=== PATIENT | female | born 1965 | race Caucasian/White ===

== ENCOUNTER → 2017-04-01 | Outpatient (CLI) | payer OTHER | PROVIDERS: ATTEND Allergy & Immunology Allergy | DX: R13.10 Dysphagia, unspecified (principal); K21.9 Gastro-esophageal reflux disease without esophagitis; K44.9 Diaphragmatic hernia without obstruction or gangrene; R09.89 Other specified symptoms and signs involving the circulatory and respiratory systems | CPT/HCPCS: 92611-GN ==

== ENCOUNTER → 2017-05-27 | Outpatient (CLI) | payer OTHER | LOC: FIMAGING 11:57 | PROVIDERS: ATTEND Family Medicine | DX: Z12.31 Encounter for screening mammogram for malignant neoplasm of breast (principal) | CPT/HCPCS: G0202 ==

== ENCOUNTER 2017-06-17 10:30 | Inpatient (IN) | payer OTHER ==
--- NOTE | 2017-06-17 09:40 | PDHPUP ---
History & Physical Update H&P update statement: This history and physical update is based on an assessment of the patient which was completed after admission or registration (within 24 hours), but prior to the surgery/procedure. updated
[~2017-06-17 10:30] MED LIST: BUPIVACAINE 0.5% 30 ML SDV ONE; HEPARIN 1000 UNIT/1 ML MDV ONE; ceFAZolin 1 GM/5 ML SYR ONE; cefOXitin SODIUM 2 GM in D5W 100 ML IV ONE
[2017-06-17] MEDS ORDERED: LR 1,000 ML IV ONE (12:31)
[2017-06-17] MEDS ORDERED: SCOPOLAMINE HYDROBROMIDE 1 MG/3 DAYS PATCH TD ONE (13:04)
[2017-06-17] MEDS ORDERED: MIDAZOLAM 2 MG/2 ML VIAL IVP ONE (13:05)
--- NOTE | 2017-06-17 13:06 | PDANEPAE ---
ANE History of Present Illness colon ca ANE Past Medical History - Cardiovascular History Hx Hypertension: No Hx Arrhythmias: No Hx Chest Pain: No Hx Coronary Artery / Peripheral Vascular Disease: No Hx CHF / Valvular Disease: No Hx Palpitations: No Cardiovascular History Comment: was told recently x1 that she may have a murmur - Pulmonary History Hx COPD: No Hx Asthma/Reactive Airway Disease: Yes Hx Recent Upper Respiratory Infection: No Hx Oxygen in Use at Home: No Hx Sleep Apnea: No Sleep Apnea Screening Result - Last Documented: Negative Pulmonary History Comment: asthma- instructed pt to bring inhaler to hospital - Neurologic History Hx Cerebrovascular Accident: No Hx Seizures: No Hx Dementia: No - Endocrine History Hx Diabetes: No - Renal History Hx Renal Disorders: No - Liver History Hx Hepatic Disorders: No - Neurological & Psychiatric Hx Hx Neurological and Psychiatric Disorders: No - Cancer History Hx Cancer: Yes Cancer History Comment: colon cancer currently diagnosed 05/10/17 - Congenital Disorder History Hx Congenital Disorders: No - GI History Hx Gastrointestinal Disorders: Yes Gastrointestinal History Comment: colon ca currently. ibs symptoms. chronic diarrhea. diverticula. small intestinal overgrowth - Other Health History Other Health History: wears glasses. went camping this past weekend and now has 3 bite looking spots on leg that are itchy - Chronic Pain History Chronic Pain: Yes (abd pain) - Surgical History Prior Surgeries: shoulder surgery- bilaterally for impengement syndrome. foot surgery 2004ish- left. right tonsillectomy and right neck disection and drainage with Lillydahl 03/16/09 ANE Review of Systems Review of Systems: - Exercise capacity METS (RN): 4 METS ANE Patient History - Allergies Allergies/Adverse Reactions: Sulfa (Sulfonamide Antibiotics) Allergy (Verified 06/17/17 11:53) - Home Medications Home Medications: Fluticasone Hfa 110 Mcg [Flovent 110 MCG Hfa MDI (*)] 1 puffs IH BID 06/15/17 [ Last Taken 06/17/17] Triamcinolone Acetonide [Nasacort] 1 spray NS DAILY 06/15/17 [Last Taken 22:00] valACYclovir [Valtrex (*)] 500 mg PO DAILY PRN 06/15/17 [Last Taken 06/16/17 21: 00] - NPO status NPO Status: no food or drink >8 hours NPO Since - Liquids (Date): 06/17/17 NPO Since - Liquids (Time): 09:00 NPO Since - Solids (Date): 06/16/17 NPO Since - Solids (Time): 13:00 - Smoking Hx Smoking Status: Former smoker - Family Anes Hx Family Hx Anesthesia Complications: none ANE Labs/Vital Signs - Vital Signs Blood Pressure: 126/88 Heart Rate: 82 Respiratory Rate: 16 O2 Sat (%): 95 Height: 158.75 cm Weight: 59.421 kg ANE Physical Exam - Airway Neck exam: FROM Mallampati Score: Class 2 Mouth exam: normal dental/mouth exam - Pulmonary Pulmonary: no respiratory distress - Cardiovascular Cardiovascular: regular rate and rhythym - ASA Status ASA Status: II ANE Anesthesia Plan Anesthesia Plan: general endotracheal anesthesia
[2017-06-17] MEDS ORDERED: HYDROmorphONE/DILAUDID 2 MG/ML INJ ONE (13:11)
[2017-06-17] MEDS ORDERED: PROPOFOL 200 MG/20 ML VIAL ONE (13:11)
[2017-06-17] MEDS ORDERED: fentaNYL 100 MCG/2 ML INJ ONE ×3 (13:11→16:53)
[2017-06-17] MEDS ORDERED: ROCURONIUM 50 MG/5 ML VIAL ONE (13:11)
[2017-06-17] MEDS ORDERED: DEXAMETHASONE 4 MG/ML VIAL ONE (13:11)
[2017-06-17] MEDS ORDERED: LIDOCAINE 2% 5 ML SDV ONE (13:11)
[2017-06-17] MEDS ORDERED: ONDANSETRON 4 MG/2 ML VIAL ONE ×2 (13:11→16:00)
[2017-06-17] MEDS ORDERED: HYDROmorphONE/DILAUDID 1 MG/ML INJ IVP PRN ×2 (13:30→14:31)
[2017-06-17] MEDS ORDERED: OXYCODONE/APAP 5/325 TAB PO PRN ×2 (13:30→14:31)
[2017-06-17] MEDS ORDERED: ACETAMINOPHEN 325 MG TAB PO PRN (13:30)
[2017-06-17] MEDS ORDERED: BUPIVACAINE 0.5% 30 ML SDV ONE (14:02)
[2017-06-17] MEDS ORDERED: NALOXONE HCL 0.4 MG/ML INJ IVP PRN (14:31)
[2017-06-17] MEDS ORDERED: ONDANSETRON 4 MG/2 ML VIAL IVP PRN (14:31)
[2017-06-17] MEDS ORDERED: PROMETHAZINE HCL 25 MG/ML INJ IVP PRN (14:31)
[2017-06-17] MEDS ORDERED: MEPERIDINE 25 MG/ML SYR IVP PRN (14:31)
--- NOTE | 2017-06-17 15:32 | POSTANESTH ---
Post Anesthetic Evaluation Cardiovascular Status: Normal, Stable Respiratory Status: Normal, Stable Level of Consciousness/Mental Status: Can Participate in Eval Pain Control: Adequate, Prn Tx Ordered Nausea/Vomiting Control: Adequate, Prn Tx Ordered Complications Possibly Related to Anesthesia: None Noted
--- NOTE | 2017-06-17 15:57 | POSTOPPROG ---
Post Op Note Date of Operation: 06/17/17 Surgeon: John Duron Director Teen Post: Steve Ogden Anesthesiologist: Dr Lerma Anesthesia: GET(General Endotracheal) Pre-op Diagnosis: colon cancer Post-op Diagnosis: same Indication: same Procedure: lap assisted transverse colectomy Findings: mass in colon Inf/Abcess present in the surg proc area at time of surgery?: No Depth: Organ Space EBL: 50-100 Specimen(s): colon with mass, adequate margins, likely malignant
[2017-06-17] MEDS ORDERED: PROMETHAZINE HCL 25 MG/ML INJ ONE (16:12)
[2017-06-17] MEDS: fentaNYL 100 MCG/2 ML INJ IVP PRN ×2 (16:53→17:03)
[2017-06-17] MEDS ORDERED: cefOXitin SODIUM 1 GM in D5W 50 ML IV SCH (17:00)
[2017-06-17] MEDS: cefOXitin SODIUM 1 GM in D5W 50 ML IV SCH ×2 (18:12→23:17)
[2017-06-17] MEDS: KETOROLAC 15 MG/1 ML SDV IVP SCH ×2 (18:12→23:17)
[2017-06-17] MEDS: D5W 1/2 NS W/ 20 KCl/L 1,000 ML IV SCH (18:12)
[2017-06-17] MEDS: HYDROmorphone HCL/NS/PF 0.4 MG/2 ML SYR IVP PRN (22:36)
--- NOTE | 2017-06-18 05:09 | GOP ---
[f rep st] OPERATIVE REPORT DATE OF OPERATION: 06/17/2017 SURGEON: oJhn Duron MD PREOPERATIVE DIAGNOSIS: Splenic flexure carcinoma. POSTOPERATIVE DIAGNOSIS: Splenic flexure carcinoma. PROCEDURE PERFORMED: Laparoscopic assisted left hemicolectomy. FINDINGS: Patient was found to have no evidence of metastatic disease. She had a 3 cm mass partiall y obstructing near the splenic flexure. No evidence of other disease in the abdomen. She specifical ly had no real significant diverticula seen. ESTIMATED BLOOD LOSS: Blood loss was less than 25 cc. DESCRIPTION OF PROCEDURE: Patient was taken to the operating room where she received satisfactory ge neral endotracheal anesthesia by Dr. Clinton. She was placed in supine position in low stirrups, prep ped and draped in the usual sterile fashion. A periumbilical incision was made. A Veress needle ins erted. Pneumoperitoneum was established. Trocar was introduced. Laparoscope introduced. Good visual ization was obtained. Two other trocars were placed in the lower abdomen under direct vision. The a bdomen was visually explored, with no evidence of metastatic disease. The splenic flexure of the col on was then mobilized with the Harmonic Scalpel. There were a fair amount of adhesions up in the lef t upper quadrant. These were taken down. The lateral peritoneal reflection of the descending colon was divided and the descending colon was dissected free from Gerota fascia and retracted medially. T he splenic flexure was further mobilized. The gastric colic omentum was divided with the Harmonic Sc alpel until the entire splenic flexure was easily mobilized. At that point a 3 inch periumbilical in cision was made and carried down through the linea alba. The abdomen was entered carefully. The spl enic flexure of the colon was brought up through this incision, which was protected with an Jax wo und protector. The descending colon was divided with a BOZENA stapler as was the proximal transverse co carmela just left of the middle colic artery. Mesentery was then divided with the Harmonic Scalpel. The specimen was removed and sent to Pathology and thought to be generous margins. A sulm-ff-dici anast omosis was then made with a BOZENA stapler and a cross application of the stapler to close the insertion site. The suture line was reinforced with 3-0 silk interrupted sutures. The suture line was covere d with some omental tissue with interrupted 3-0 silk sutures. Colon was returned to the abdomen. Th e wound was irrigated. Hemostasis appeared to be adequate. The wound was then closed using a runnin g #1 PDS suture. Subcu was closed with 3-0 Vicryl and the skin with a 4-0 Monocryl subcuticular stit ch. Trocar sites were also closed with 4-0 Monocryl subcuticular sutures. All wounds were infiltrat ed with 0.5% Marcaine. She tolerated the procedure well. COMPLICATIONS: There were no complications. Copy requested to: Dr. Milton Medrano #: [id number]
[2017-06-18] MEDS: KETOROLAC 15 MG/1 ML SDV IVP SCH ×4 (05:15→23:13)
[2017-06-18] MEDS: cefOXitin SODIUM 1 GM in D5W 50 ML IV SCH (05:16)
[2017-06-18] MEDS: D5W 1/2 NS W/ 20 KCl/L 1,000 ML IV SCH (11:33)
[2017-06-18] MEDS: HYDROmorphone HCL/NS/PF 0.4 MG/2 ML SYR IVP PRN ×2 (13:30→19:55)
--- NOTE | 2017-06-18 15:09 | ASMTCMCOM ---
CM Note CM Note Notes: Spoke with RN, anticipate pt will dc home to a friends house in [facility] when medically stable. CM available for any changes. Date Signed: 06/18/2017 03:08 PM Electronically Signed By:Eli Mayorga RN
[2017-06-19] MEDS: KETOROLAC 15 MG/1 ML SDV IVP SCH ×3 (05:33→18:01)
--- NOTE | 2017-06-19 08:43 | SOAPPROG ---
SOAP Progress Note Assessment/Plan: Assessment: AFEBRILE/WOUND OKAY/VITAL SIGNS STABLE/URINE OUTPUT ADEQUATE/LABS OKAY Plan: ADVANCE DIET 06/19/17 08:42 Objective: Vital Signs Temp Pulse Resp BP Pulse Ox 36.7 C 95 14 108/61 95 06/19/17 07:17 06/19/17 07:17 06/19/17 07:17 06/19/17 07:17 06/19/17 07:17 Laboratory Results 06/18/17 04:13 06/18/17 04:13 06/18/17 06/19/17 06/20/17 05:59 05:59 05:59 Intake Total 2925 904 Output Total 900 800 Balance 2024 104 ICD10 Worksheet Patient Problems: Problems Problem Status Onset Colon cancer Acute
[2017-06-19] MEDS ORDERED: HYDROCODONE/APAP 5/325 TAB PO PRN (10:18)
[2017-06-19] MEDS: HYDROmorphONE/DILAUDID 2 MG TAB PO PRN ×2 (10:42→19:21)
--- NOTE | 2017-06-19 11:51 | SOAPPROG ---
SOAP Progress Note Assessment/Plan: Assessment: AFEBRILE/WOUND OKAY/VITAL SIGNS STABLE/URINE OUTPUT ADEQUATE/LABS OKAY Plan: ADVANCE DIET 06/19/17 08:42 06/19/17 11:49 STATUS POST LEFT HEMICOLECTOMY/VITAL SIGNS STABLE/WOUND OKAY/ABDOMEN SOFT NONTENDER/POSITIVE FLATUS/ IMPROVING AND TOLERATING P.O./SOME NAUSEA WITH PERCOCET PLAN IS HOME IN THE A.M./CHANGE PERCOCET TO DILAUDID Objective: Vital Signs Temp Pulse Resp BP Pulse Ox 36.5 C 80 14 116/72 97 06/19/17 11:08 06/19/17 11:08 06/19/17 11:08 06/19/17 11:08 06/19/17 11:08 Laboratory Results 06/18/17 04:13 06/18/17 04:13 06/18/17 06/19/17 06/20/17 05:59 05:59 05:59 Intake Total 2925 904 Output Total 900 800 Balance 2024 104 ICD10 Worksheet Patient Problems: Problems Problem Status Onset Colon cancer Acute - ICD10 Problem Qualifiers (1) Colon cancer
[2017-06-20] MEDS: KETOROLAC 15 MG/1 ML SDV IVP SCH ×3 (00:12→11:54)
[2017-06-20 04:10] VITALS: RESP 16
[2017-06-20] MEDS: HYDROmorphONE/DILAUDID 2 MG TAB PO PRN ×2 (04:28→09:16)
[2017-06-20] MEDS: ONDANSETRON 4 MG/2 ML VIAL IVP PRN ×2 (11:29→15:55)
[2017-06-20 15:01] VITALS: BP 119/68; PULSE 94; TEMP 98; O2SAT 92
--- NOTE | 2017-06-20 16:17 | SOAPPROG ---
SOAP Progress Note Assessment/Plan: Assessment: AFEBRILE/WOUND OKAY/VITAL SIGNS STABLE/URINE OUTPUT ADEQUATE/LABS OKAY Plan: ADVANCE DIET 06/19/17 08:42 06/20/17 16:16 DOING WELL/MINOR NAUSEA COMPLAINT/WOUND OKAY/POSITIVE BM AND FLATUS/EATING OKAY PLAN HOME TODAY Objective: Vital Signs Temp Pulse Resp BP Pulse Ox 36.7 C 94 16 119/68 92 06/20/17 15:00 06/20/17 15:00 06/20/17 15:00 06/20/17 15:00 06/20/17 15:00 Laboratory Results 06/18/17 04:13 06/18/17 04:13 06/19/17 06/20/17 06/21/17 05:59 05:59 05:59 Intake Total 904 1050 Output Total 800 1300 200 Balance 104 -250 -200 ICD10 Worksheet Patient Problems: Problems Problem Status Onset Colon cancer Acute
--- NOTE | 2017-06-21 11:41 | ASDISCHSUM ---
Discharge Information Plan Status:Home with No Needs Medically Cleared to Leave: Discharge Date:06/20/2017 05:28 PM CM D/C Disposition:Home, Routine, Self-Care ADT D/C Disposition:Home, Routine, Self-Care Projected Discharge Date:06/20/2017 05:28 PM Transportation at D/C:Family Discharge Delay Reason: Follow-Up Date:06/20/2017 05:28 PM Discharge Slot: Final Diagnosis: Placement Information Patient Contact Information Contact Name:REN Relationship:Mother Address: Work Phone: City: [facility] Phone: State/Zip Code: Email: Financial Information Financial Class:[employer] [facility] Primary Plan Desc:[employer] PPO AND EPO Primary Plan Number:[id number] Secondary Plan Desc: Secondary Plan Number: Assessment Information [facility] CM Progress Note CM Note CM Note Notes: Spoke with RN, anticipate pt will dc home to a friends house in [facility] when medically stable. CM available for any changes. Date Signed: 06/18/2017 03:08 PM Electronically Signed By:Eli Mayorga RN Intervention Information
--- NOTE | 2017-08-02 13:52 | GDS ---
[f rep st] DISCHARGE SUMMARY DISCHARGE DIAGNOSES: Splenic flexure, colon cancer. OTHER DIAGNOSES: Include history of asthma, IgA deficiency, small intestine bacterial overgrowth, hi atal hernia, sinus rhinitis, 2 shoulder surgeries, left foot surgery, tonsillectomy. PROCEDURES: Laparoscopic-assisted left hemicolectomy. INTRAOPERATIVE FINDINGS: Patient was found to have no gross evidence of metastatic disease. She had a 3 cm mass partially obstructing near the splenic flexure. There was no evidence of other disease in the abdomen. Specifically, she had no real significant diverticula seen. Pathology revealed a mo derately differentiated invasive adenocarcinoma measuring 2.5 cm with negative margins and 2 of 21 po sitive lymph nodes. Please see report for details. HOSPITAL COURSE: Tess is a 52-year-old female who was found to have a partially obstructing colon cancer. She underwent surgery with Dr. Duron. The procedure was uncomplicated, and she tolerated it well. The patient's postoperative course was relatively uneventful. Her pain was well controlled, and her diet was appropriately advanced. DISCHARGE INSTRUCTIONS: Patient was discharged to home in stable condition, with plans for outpatien t followup with us in surgery, as well as her PCP and her oncologist. Limitations were discussed. /[id number]/MODL
== END 2017-06-20 17:28 | disposition home or self-care (01) | DRG 330 ==
LOC: F3E 11:02
PROVIDERS: ADMIT Surgery; ATTEND Surgery
PROC: 07TB0ZZ Resection of Mesenteric Lymphatic, Open Approach (ICD-10-PCS; principal; 2017-06-17 12:45)
PROC: 0DBL0ZZ Excision of Transverse Colon, Open Approach (ICD-10-PCS; principal; 2017-06-17 12:45)
DX: C18.4 Malignant neoplasm of transverse colon (principal); C77.2 Secondary and unspecified malignant neoplasm of intra-abdominal lymph nodes; K59.8 Other specified functional intestinal disorders; D80.2 Selective deficiency of immunoglobulin A [IgA]; J45.909 Unspecified asthma, uncomplicated
CPT/HCPCS: J0694; J0697; J1100; J1170; J1885; J2250; J2405; J2550; J2704; J3010

== ENCOUNTER → 2017-07-26 | Outpatient (CLI) | payer OTHER | LOC: FIMAGING 12:28 | PROVIDERS: ATTEND Physician Assistant | DX: R10.13 Epigastric pain (principal); C18.9 Malignant neoplasm of colon, unspecified ==

== ENCOUNTER 2017-08-17 07:31 | Day surgery (SDC) | payer OTHER ==
--- NOTE | 2017-08-17 07:25 | PDHPUP ---
History & Physical Update H&P update statement: This history and physical update is based on an assessment of the patient which was completed after admission or registration (within 24 hours), but prior to the surgery/procedure.
[2017-08-17] MEDS ORDERED: ceFAZolin 2 GM/SWFI 2 GM/20 ML SYR IVP ONE (07:39)
[2017-08-17] MEDS ORDERED: LR 1,000 ML IV ONE (07:40)
[2017-08-17] MEDS ORDERED: LIDOCAINE 1% 2 ML INJ ID PRN (07:40)
--- NOTE | 2017-08-17 07:51 | PDHPUP ---
History & Physical Update H&P update statement: This history and physical update is based on an assessment of the patient which was completed after admission or registration (within 24 hours), but prior to the surgery/procedure. H&P update: H&P reviewed & patient examined, no change in patient's condition since H&P completed
[2017-08-17 08:24] VITALS: PULSE 66; TEMP 98.2
[2017-08-17] MEDS ORDERED: SODIUM BICARBONATE 10 MEQ/10 ML SYR IVP ONE ×2 (08:39→09:32)
[2017-08-17] MEDS ORDERED: LIDOCAINE 1% 300 MG/30 ML SDV ONE (08:39)
[2017-08-17] MEDS ORDERED: BACITRACIN ZINC 14.2 GM OINTTUBE TP ONE (08:39)
[2017-08-17] MEDS ORDERED: BUPIVACAINE 0.5% 30 ML SDV ONE (08:40)
[2017-08-17] MEDS ORDERED: fentaNYL 100 MCG/2 ML INJ IVP PRN ×2 (09:15→10:35)
[2017-08-17] MEDS ORDERED: ALBUTEROL 3 ML DEYVIAL IH PRN (09:15)
[2017-08-17] MEDS ORDERED: NALOXONE HCL 0.4 MG/ML INJ IVP PRN ×3 (09:15→11:04)
[2017-08-17] MEDS ORDERED: HYDROmorphONE/DILAUDID 1 MG/ML INJ IVP PRN ×2 (09:15→10:35)
[2017-08-17] MEDS ORDERED: DEXAMETHASONE 4 MG/ML VIAL IVP PRN ×2 (09:15→10:35)
[2017-08-17] MEDS ORDERED: ONDANSETRON 4 MG/2 ML VIAL IVP PRN ×2 (09:15→10:35)
[2017-08-17] MEDS ORDERED: MIDAZOLAM 2 MG/2 ML VIAL IVP ONE (09:15)
[2017-08-17] MEDS ORDERED: PROMETHAZINE HCL 25 MG/ML INJ IVP PRN ×2 (09:15→10:35)
--- NOTE | 2017-08-17 09:15 | PDANEPAE ---
ANE History of Present Illness here for port placement ANE Past Medical History - Cardiovascular History Hx Hypertension: No Hx Arrhythmias: No Hx Chest Pain: No Hx Coronary Artery / Peripheral Vascular Disease: No Hx CHF / Valvular Disease: No Hx Palpitations: No Cardiovascular History Comment: was told recently x1 that she may have a murmur - Pulmonary History Hx COPD: No Hx Asthma/Reactive Airway Disease: Yes Hx Recent Upper Respiratory Infection: No Hx Oxygen in Use at Home: No Hx Sleep Apnea: Yes Sleep Apnea Screening Result - Last Documented: Negative Pulmonary History Comment: asthma- instructed pt to bring inhaler to hospital - Neurologic History Hx Cerebrovascular Accident: No Hx Seizures: No Hx Dementia: No - Endocrine History Hx Diabetes: No - Renal History Hx Renal Disorders: No - Liver History Hx Hepatic Disorders: No - Neurological & Psychiatric Hx Hx Neurological and Psychiatric Disorders: No - Cancer History Hx Cancer: Yes Cancer History Comment: colon cancer currently diagnosed 05/10/17 - Congenital Disorder History Hx Congenital Disorders: No - GI History Hx Gastrointestinal Disorders: Yes Gastrointestinal History Comment: colon ca currently. ibs symptoms. chronic diarrhea. diverticula. small intestinal overgrowth - Other Health History Other Health History: wears glasses. RECENT POISON ALFIE - RESOLVED - Chronic Pain History Chronic Pain: No - Surgical History Prior Surgeries: COLECTOMY 06-17-18. shoulder surgery- bilaterally for impengement syndrome. foot surgery 2004ish- left. right tonsillectomy and right neck disection and drainage with Lillydahl 03/16/09 ANE Review of Systems Review of systems is: negative Review of Systems: - Exercise capacity Exercise capacity: >=4 METS METS (RN): 4 METS ANE Patient History - Allergies Allergies/Adverse Reactions: Sulfa (Sulfonamide Antibiotics) Allergy (Verified 06/17/17 11:53) - Home Medications Home medications: home medication list seen and reviewed Home Medications: Fluticasone Hfa 110 Mcg [Flovent 110 MCG Hfa MDI (*)] 1 puffs IH BID 06/15/17 [ Last Taken 08/17/17 06:00] Triamcinolone Acetonide [Nasacort] 1 spray NS DAILY 06/15/17 [Last Taken 1 Day Ago ~08/16/17] valACYclovir [Valtrex (*)] 500 mg PO DAILY PRN 06/15/17 [Last Taken 3 Weeks Ago ~07/27/17] Albuterol Hfa Anes Only 08/16/17 [Last Taken Unknown] Herbals/Supplements -Info Only 08/16/17 [Last Taken 1 Day Ago ~08/16/17] - NPO status NPO Status: no food or drink >8 hours NPO Since - Liquids (Date): 08/17/17 NPO Since - Liquids (Time): 06:10 NPO Since - Solids (Date): 08/16/17 NPO Since - Solids (Time): 21:00 - Anes Hx Anes Hx: post operative nausea - Smoking Hx Smoking Status: Former smoker - Family Anes Hx Family Hx Anesthesia Complications: none ANE Labs/Vital Signs - Vital Signs Vital Signs: reviewed preoperatively; see RN documention for details Blood Pressure: 103/42 Heart Rate: 66 Respiratory Rate: 18 O2 Sat (%): 97 Height: 157.48 cm Weight: 54.885 kg ANE Physical Exam - Airway Neck exam: FROM Mallampati Score: Class 1 - Pulmonary Pulmonary: no respiratory distress - Cardiovascular Cardiovascular: regular rate and rhythym - ASA Status ASA Status: II ANE Anesthesia Plan Anesthesia Plan: MAC
[2017-08-17] MEDS ORDERED: PROPOFOL/EMULSION 500 MG/50 ML BOTTLE IV ONE (09:20)
[2017-08-17] MEDS ORDERED: fentaNYL 100 MCG/2 ML INJ ONE (09:20)
[2017-08-17] MEDS ORDERED: NS 500 ML IV PRN (10:35)
[2017-08-17] MEDS ORDERED: MEPERIDINE 25 MG/ML SYR ONE (10:37)
[2017-08-17] MEDS ORDERED: MEPERIDINE 25 MG/ML SYR IVP PRN (11:04)
[2017-08-17 12:27] VITALS: BP 128/64; RESP 14; O2SAT 97
--- NOTE | 2017-08-18 14:17 | GOP ---
[f rep st] OPERATIVE REPORT DATE OF OPERATION: 08/17/2017 SURGEON: John Duron MD DATA WAREHOUSE SPECIALIST: No sugar laboratory assistant. ANESTHESIOLOGIST: Joshua Prieto MD PREOPERATIVE DIAGNOSIS: Colon cancer. POSTOPERATIVE DIAGNOSIS: Colon cancer. PROCEDURE PERFORMED: Left subclavian port placement with fluoroscopic guidance. FINDINGS: The patient was found to have good position and good flow of the port. DESCRIPTION OF PROCEDURE: The patient was taken to the operating room, where she received satisfacto ry general laryngeal mask anesthesia by Dr. Prieto. She was placed in supine position, prepped and d raped in usual sterile fashion. The areas were infiltrated with 1% Xylocaine, and a direct left subc lavian stick was made with the patient in Trendelenburg. A guidewire was introduced, position was co nfirmed with fluoroscopy. A subcutaneous pocket was made in the 2nd intercostal space. Port tubing was passed from that pocket to the subclavian insertion site and trimmed to the appropriate length us ing fluoroscopic guidance. It was then introduced into the introducer sheath and dilator system and positioned in the right atrium. Good backflow was achieved. The catheter was flushed with heparin a nd saline. The port was secured to the fascia with 3-0 Vicryl. The pocket was closed with 3-0 Vicry l for the subcu and a 4-0 Monocryl subcuticular stitch for the skin. The entrance site was closed wi th Monocryl subcuticular suture. Wounds were dressed with Steri-Strips. She tolerated the procedure well, was taken to the recovery room in good condition. COMPLICATIONS: None. /[id number]/MODL
== END 2017-08-17 12:20 | disposition home or self-care (01) ==
LOC: FSGY 07:31
PROVIDERS: ATTEND Surgery
PROC: 05H633Z Insertion of Infusion Device into Left Subclavian Vein, Percutaneous Approach (ICD-10-PCS; principal; 2017-08-17 09:15)
DX: C18.9 Malignant neoplasm of colon, unspecified (principal); R10.13 Epigastric pain; Z90.49 Acquired absence of other specified parts of digestive tract
CPT/HCPCS: C1788; J0690; J1642; J2250; J2704; J3010

== ENCOUNTER → 2018-05-31 | Outpatient (CLI) | payer OTHER | LOC: FIMAGING 12:36 | PROVIDERS: ATTEND Family Medicine | DX: Z12.31 Encounter for screening mammogram for malignant neoplasm of breast (principal); Z80.3 Family history of malignant neoplasm of breast ==